=== PATIENT | male | born 1945 | race Hispanic/Latino ===

== ENCOUNTER 2017-08-06 12:58 | Inpatient (IN) | payer MEDICARE ==
[~2017-08-06] VITALS: Ht 180.3 cm; Wt 119.7 kg
[~2017-08-06 12:58] MED LIST: ASPI-1005 PO; ATOR40TA69 PO; CARV3.1262 PO; DOXY100C2 PO; ENAL10TA PO; FLUT1AER IH; FURO20TA6 PO; GLYB5TAB8 PO; METH4TAB15 PO; Prasugrel Hcl PO
[2017-08-06 14:02] LABS: BASOPHILS % (AUTO) 0.8 % (0.0-5.0); EOSINOPHILS % (AUTO) 2.1 % (0.0-8.0); HEMATOCRIT 40.7 % (42-54); LYMPHOCYTES % (AUTO) 26.5 % (21.0-51.0); MEAN CORPUSCULAR HGB CONC 34.2 g/dL (32.0-36.0); MEAN CORPUSCULAR VOLUME 93.8 fL (79-99); MONOCYTES % (AUTO) 7.6 % (3.0-13.0); PLATELET COUNT (AUTO) 200 K/uL (130-400); RED BLOOD CELL COUNT(AUTO) 4.34 MIL/uL (4.50-6.20); RED CELL DISTRIBUTION WIDTH 14.1 % (11.0-15.5)
[2017-08-06 14:19] LABS: INR 0.99 (0.85-1.15); PARTIAL THROMBOPLASTIN TIME 27.1 SEC (26.3-35.5); PROTHROMBIN TIME 10.4 SEC (9.6-11.6)
[2017-08-06 14:22] LABS: CREATININE 1.4 mg/dL (0.5-1.5); POTASSIUM 3.9 mmol/L (3.5-5.1)
[2017-08-06 14:35] LABS: ALBUMIN 3.5 g/dL (3.5-5.0); BILIRUBIN,TOTAL 0.5 mg/dL (0.2-1.0); CREATINE KINASE MB 3.1 ng/mL (0.5-3.6); TOTAL PROTEIN, SERUM 6.9 g/dL (6.0-8.3)
[2017-08-06] MEDS ORDERED: LIDOCAINE HCL-MPF 1% 2ML VIAL IVP PRN (14:45)
[2017-08-06] MEDS ORDERED: POTASSIUM CHLORIDE 20MEQ/100ML 100 ML IV PRN (14:45)
[2017-08-06] MEDS ORDERED: ACETAMINOPHEN 325 MG TAB PO PRN ×2 (14:45)
[2017-08-06] MEDS ORDERED: GUAIFENESIN-DM 200/20 MG 10 ML PO PRN (14:45)
[2017-08-06] MEDS ORDERED: ONDANSETRON HCL MDV 20ML 2 MG/ML VIAL IV PRN (14:45)
[2017-08-06] MEDS ORDERED: MAG HYDROX/AL HYDROX/SIMETH ES 30 ML SUSP UDCUP PO PRN (14:45)
[2017-08-06] MEDS ORDERED: POTASSIUM CHLORIDE 20 MEQ ERTAB PO PRN (14:45)
[2017-08-06] MEDS ORDERED: ACETAMINOPHEN-CODEINE 300/30MG TAB PO PRN ×2 (14:45)
[2017-08-06] MEDS ORDERED: LACTULOSE 20 GM/30 ML UDCUP PO PRN (14:45)
[2017-08-06] MEDS ORDERED: MORPHINE SULFATE 4 MG/1ML SYG IV PRN (14:45)
[2017-08-06] MEDS ORDERED: MORPHINE SULFATE 2 MG/ML 1ML SYG IV PRN (14:45)
[2017-08-06] MEDS ORDERED: POTASSIUM CHLORIDE 10% ELIXIR 20 MEQ/15 ML UDCUP PO PRN (14:45)
[2017-08-06] MEDS ORDERED: HYDRALAZINE HCL 20 MG/ML VIAL IV PRN (14:45)
[2017-08-06] MEDS ORDERED: NITROGLYCERIN 0.4 MG SL TAB SL PRN (14:45)
[2017-08-06 15:00] VITALS: BP 126/74
[2017-08-06] MEDS ORDERED: VALS320T15 PO (15:15)
[2017-08-06] MEDS ORDERED: METF500T6 PO (15:15)
[2017-08-06] MEDS ORDERED: ISOS20TA9 PO (15:15)
[2017-08-06] MEDS ORDERED: CLOP75TA32 PO (15:15)
[2017-08-06] MEDS ORDERED: CEFA500C3 PO (15:15)
[2017-08-06] MEDS ORDERED: LINA1TAB PO (15:15)
[2017-08-06] MEDS ORDERED: FURO20TA4 PO (15:15)
[2017-08-06] MEDS ORDERED: ASPI-555 PO (15:15)
[2017-08-06] MEDS ORDERED: AMOX-429 PO (15:15)
[2017-08-06] MEDS: INSULIN HUMULIN R 100 UNIT/ML 3ML SQ SCH ×2 (15:54→21:00)
[2017-08-06] MEDS: ALBUTEROL SULFATE 0.083% 2.5 MG/3 ML INH IH SCH ×2 (18:33→23:43)
[2017-08-06] MEDS: IPRATROPIUM 0.5 MG/2.5 ML INH IH SCH ×2 (18:33→23:43)
[2017-08-06] MEDS: BUDESONIDE 0.5 MG/2 ML INH IH SCH (19:15)
[2017-08-06 19:40] VITALS: BP 134/75
[2017-08-06] MEDS: CARVEDILOL 3.125 MG TABLET PO SCH (20:32)
[2017-08-06] MEDS: ISOSORBIDE DINITRATE 20 MG TABLET PO SCH (20:33)
[2017-08-06 23:37] VITALS: BP 128/81
[2017-08-07 03:59] LABS: HEMATOCRIT 38.7 % (42-54); MEAN CORPUSCULAR HEMOGLOBIN 32.9 pg (27.0-33.0); MEAN CORPUSCULAR HGB CONC 34.8 g/dL (32.0-36.0); MEAN CORPUSCULAR VOLUME 94.5 fL (79-99); PLATELET COUNT (AUTO) 185 K/uL (130-400); RED CELL DISTRIBUTION WIDTH 14.3 % (11.0-15.5)
[2017-08-07 04:14] VITALS: BP 134/59
[2017-08-07 04:43] LABS: CARBON DIOXIDE 26 mmol/L (21-32); CHLORIDE 100 mmol/L (101-111); CHOLESTEROL 181 mg/dL (<200); CREATINE KINASE MB 1.6 ng/mL (0.5-3.6); CREATINE KINASE, TOTAL 80 U/L (21-232); CREATININE 1.4 mg/dL (0.5-1.5); GLOMERULAR FILTR. RATE CALC 53 mL/min (>60); GLUCOSE,RANDOM 150 mg/dL (70-105); HDL CHOLESTEROL 43 mg/dL (29-71); LDL DIRECT 109 mg/dL (0-99); MYOGLOBIN 61 ng/mL (10-92); POTASSIUM 4.1 mmol/L (3.5-5.1); SODIUM SERUM 135 mmol/L (136-145); TRIGLYCERIDES 243 mg/dL (30-200); TROPONIN I < 0.04 ng/mL (0.00-0.06); UREA NITROGEN, BLOOD 22 mg/dL (7-18)
[2017-08-07] MEDS: INSULIN HUMULIN R 100 UNIT/ML 3ML SQ SCH ×4 (06:13→21:43)
[2017-08-07] MEDS: IPRATROPIUM 0.5 MG/2.5 ML INH IH SCH ×4 (06:20→23:28)
[2017-08-07] MEDS: BUDESONIDE 0.5 MG/2 ML INH IH SCH ×2 (06:20→18:55)
[2017-08-07] MEDS: ALBUTEROL SULFATE 0.083% 2.5 MG/3 ML INH IH SCH ×4 (06:20→23:28)
[2017-08-07 07:00] VITALS: BP 151/90
[2017-08-07] MEDS: ENOXAPARIN SODIUM 40 MG/0.4 ML SYRINGE SQ SCH (09:00)
[2017-08-07] MEDS: CARVEDILOL 3.125 MG TABLET PO SCH ×2 (09:04→21:42)
[2017-08-07] MEDS: LOSARTAN 100 MG TABLET PO SCH (09:04)
[2017-08-07] MEDS: ASPIRIN 81MG TAB.CHEW PO SCH (09:04)
[2017-08-07] MEDS: FAMOTIDINE 20MG TAB 20 MG TAB PO SCH (09:04)
[2017-08-07] MEDS: FUROSEMIDE 20 MG TABLET PO SCH (09:04)
[2017-08-07] MEDS: GLIMEPIRIDE 2 MG TABLET PO SCH (09:05)
[2017-08-07 11:00] VITALS: BP 133/86
[2017-08-07 16:00] VITALS: BP 139/73
[2017-08-07 19:34] VITALS: BP 134/72
[2017-08-07] MEDS: ISOSORBIDE DINITRATE 20 MG TABLET PO SCH (21:41)
[2017-08-08] VITALS (7 sets, daily range): BP systolic 110–140; BP diastolic 64–78
[2017-08-08 05:02] LABS: HEMATOCRIT 41.9 % (42-54); MEAN CORPUSCULAR HEMOGLOBIN 32.4 pg (27.0-33.0); MEAN CORPUSCULAR HGB CONC 34.4 g/dL (32.0-36.0); PLATELET COUNT (AUTO) 205 K/uL (130-400); RED BLOOD CELL COUNT(AUTO) 4.46 MIL/uL (4.50-6.20); RED CELL DISTRIBUTION WIDTH 13.9 % (11.0-15.5); WHITE BLOOD COUNT (AUTO) 7.9 K/uL (4.8-10.8)
[2017-08-08 05:31] LABS: CREATININE 1.5 mg/dL (0.5-1.5)
[2017-08-08] MEDS: IPRATROPIUM 0.5 MG/2.5 ML INH IH SCH ×3 (06:00→18:00)
[2017-08-08] MEDS: ALBUTEROL SULFATE 0.083% 2.5 MG/3 ML INH IH SCH ×3 (06:00→18:00)
[2017-08-08] MEDS: BUDESONIDE 0.5 MG/2 ML INH IH SCH ×2 (06:12→18:00)
[2017-08-08] MEDS: INSULIN HUMULIN R 100 UNIT/ML 3ML SQ SCH ×4 (06:30→21:30)
[2017-08-08] MEDS: LOSARTAN 100 MG TABLET PO SCH (08:40)
[2017-08-08] MEDS: FAMOTIDINE 20MG TAB 20 MG TAB PO SCH (08:40)
[2017-08-08] MEDS: GLIMEPIRIDE 2 MG TABLET PO SCH (08:40)
[2017-08-08] MEDS: ASPIRIN 81MG TAB.CHEW PO SCH (08:40)
[2017-08-08] MEDS: FUROSEMIDE 20 MG TABLET PO SCH (08:40)
[2017-08-08] MEDS: CARVEDILOL 3.125 MG TABLET PO SCH ×2 (08:41→21:29)
[2017-08-08] MEDS: ENOXAPARIN SODIUM 40 MG/0.4 ML SYRINGE SQ SCH (08:45)
[2017-08-08] MEDS: ISOSORBIDE DINITRATE 20 MG TABLET PO SCH (21:28)
[2017-08-08] MEDS: FOLIC ACID 1 MG TABLET PO SCH (21:28)
[2017-08-09 03:45] VITALS: BP 112/74
[2017-08-09 04:38] LABS: CREATININE 1.5 mg/dL (0.5-1.5); POTASSIUM 3.7 mmol/L (3.5-5.1)
[2017-08-09] MEDS: IPRATROPIUM 0.5 MG/2.5 ML INH IH SCH ×2 (06:04)
[2017-08-09] MEDS: ALBUTEROL SULFATE 0.083% 2.5 MG/3 ML INH IH SCH ×2 (06:04)
[2017-08-09] MEDS: BUDESONIDE 0.5 MG/2 ML INH IH SCH (06:15)
[2017-08-09] MEDS: INSULIN HUMULIN R 100 UNIT/ML 3ML SQ SCH ×3 (07:30→18:05)
[2017-08-09] MEDS ORDERED: IPRATROPIUM 0.5 MG/2.5 ML INH IH PRN (07:45)
[2017-08-09] MEDS ORDERED: ALBUTEROL SULFATE 0.083% 2.5 MG/3 ML INH IH PRN (07:45)
[2017-08-09] MEDS ORDERED: BUDESONIDE 0.5 MG/2 ML INH IH PRN (07:45)
[2017-08-09 07:50] VITALS: BP 160/79
[2017-08-09] MEDS: ASPIRIN 81MG TAB.CHEW PO SCH (08:46)
[2017-08-09] MEDS: FAMOTIDINE 20MG TAB 20 MG TAB PO SCH (08:46)
[2017-08-09] MEDS: FUROSEMIDE 20 MG TABLET PO SCH (08:46)
[2017-08-09] MEDS: LOSARTAN 100 MG TABLET PO SCH (08:46)
[2017-08-09] MEDS: FOLIC ACID 1 MG TABLET PO SCH ×2 (08:46→21:40)
[2017-08-09] MEDS: GLIMEPIRIDE 2 MG TABLET PO SCH (08:46)
[2017-08-09] MEDS: CARVEDILOL 3.125 MG TABLET PO SCH ×2 (08:47→21:41)
[2017-08-09] MEDS: ENOXAPARIN SODIUM 40 MG/0.4 ML SYRINGE SQ SCH (08:47)
[2017-08-09 11:35] VITALS: BP 133/73
[2017-08-09] MEDS ORDERED: ALBU8.5H8 IH (15:09)
[2017-08-09] MEDS ORDERED: TIOT18CA3 IH (15:09)
[2017-08-09 16:20] VITALS: BP 110/53
[2017-08-09 19:50] VITALS: BP 115/72
[2017-08-09] MEDS ORDERED: SODIUM CHLORIDE 0.9% 500ML 500 ML IV SCH (20:32)
[2017-08-09] MEDS: ISOSORBIDE DINITRATE 20 MG TABLET PO SCH (21:40)
[2017-08-09 23:15] VITALS: BP 106/62
[2017-08-10] VITALS (12 sets, daily range): BP systolic 113–146; BP diastolic 64–86
[2017-08-10 03:32] LABS: HEMATOCRIT 40.9 % (42-54); MEAN CORPUSCULAR HEMOGLOBIN 32.6 pg (27.0-33.0); MEAN CORPUSCULAR HGB CONC 34.6 g/dL (32.0-36.0); MEAN CORPUSCULAR VOLUME 94.3 fL (79-99); PLATELET COUNT (AUTO) 207 K/uL (130-400); RED BLOOD CELL COUNT(AUTO) 4.34 MIL/uL (4.50-6.20); RED CELL DISTRIBUTION WIDTH 14.1 % (11.0-15.5); WHITE BLOOD COUNT (AUTO) 8.5 K/uL (4.8-10.8)
[2017-08-10 03:37] LABS: CREATININE 1.6 mg/dL (0.5-1.5); POTASSIUM 4.1 mmol/L (3.5-5.1)
[2017-08-10 04:00] LABS: INR 1.01 (0.85-1.15); PARTIAL THROMBOPLASTIN TIME 27.4 SEC (26.3-35.5); PROTHROMBIN TIME 10.6 SEC (9.6-11.6)
[2017-08-10] MEDS: INSULIN HUMULIN R 100 UNIT/ML 3ML SQ SCH ×4 (06:54→21:19)
[2017-08-10] MEDS: FOLIC ACID 1 MG TABLET PO SCH ×2 (08:42→21:28)
[2017-08-10] MEDS: GLIMEPIRIDE 2 MG TABLET PO SCH (08:42)
[2017-08-10] MEDS: ENOXAPARIN SODIUM 40 MG/0.4 ML SYRINGE SQ SCH (08:43)
[2017-08-10] MEDS: ASPIRIN 81MG TAB.CHEW PO SCH (08:43)
[2017-08-10] MEDS: FAMOTIDINE 20MG TAB 20 MG TAB PO SCH (08:43)
[2017-08-10] MEDS: LOSARTAN 100 MG TABLET PO SCH (08:43)
[2017-08-10] MEDS: CARVEDILOL 3.125 MG TABLET PO SCH ×2 (08:44→21:29)
[2017-08-10] MEDS ORDERED: LIDOCAINE HCL-MPF 2% 5ML VIAL ONE ×2 (09:40→12:44)
[2017-08-10] MEDS ORDERED: IOPAMIDOL-370 100 ML VIAL IV ONE (09:40)
[2017-08-10] MEDS ORDERED: ISOVUE-370 50ML VIAL IV ONE (09:40)
[2017-08-10] MEDS ORDERED: BIVALIRUDIN 250 MG/VIAL IV ONE (09:40)
[2017-08-10] MEDS ORDERED: NITROGLYCERIN 5 MG/ML 10 ML VIAL IV ONE (09:40)
[2017-08-10] MEDS ORDERED: FAMOTIDINE/PF 20 MG/2 ML VIAL IV SCH (10:00)
[2017-08-10] MEDS ORDERED: FAMOTIDINE/PF 20 MG/2 ML VIAL IV ONE (10:09)
[2017-08-10] MEDS: DiphenhydrAMINE HCL 50 MG/ML VIAL IV SCH (10:12)
[2017-08-10] MEDS: METHYLPREDNISOLONE SOD SUCC 125MG/2ML VIAL IVP SCH (10:12)
[2017-08-10] MEDS: SODIUM CHLORIDE 0.9% 1000ML 1,000 ML IV SCH (12:45)
[2017-08-10] MEDS ORDERED: SODIUM CHLORIDE 0.9% 1000ML 1,000 ML IV SCH (13:30)
[2017-08-10] MEDS: RANOLAZINE 500 MG TAB.SR.12H PO SCH ×2 (14:41→21:00)
[2017-08-10] MEDS: ACETYLCYSTEINE 20% 200MG/ML 4ML VIAL PO SCH (14:41)
[2017-08-10] MEDS: ISOSORBIDE DINITRATE 20 MG TABLET PO SCH (21:29)
[2017-08-11] MEDS: SODIUM CHLORIDE 0.9% 1000ML 1,000 ML IV SCH (02:05)
[2017-08-11] MEDS: ACETYLCYSTEINE 20% 200MG/ML 4ML VIAL PO SCH ×2 (02:57→12:05)
[2017-08-11 03:46] VITALS: BP 132/68
[2017-08-11 04:59] LABS: HEMATOCRIT 40.2 % (42-54); MEAN CORPUSCULAR HEMOGLOBIN 32.9 pg (27.0-33.0); MEAN CORPUSCULAR HGB CONC 34.6 g/dL (32.0-36.0); MEAN CORPUSCULAR VOLUME 95.1 fL (79-99); PLATELET COUNT (AUTO) 230 K/uL (130-400); RED BLOOD CELL COUNT(AUTO) 4.22 MIL/uL (4.50-6.20)
[2017-08-11 05:20] LABS: CREATININE 1.7 mg/dL (0.5-1.5); MAGNESIUM 1.9 mg/dL (1.80-2.40); POTASSIUM 4.3 mmol/L (3.5-5.1)
[2017-08-11] MEDS: INSULIN HUMULIN R 100 UNIT/ML 3ML SQ SCH ×2 (06:30→12:01)
[2017-08-11 07:00] VITALS: BP 147/82
[2017-08-11] MEDS ORDERED: RANO500T2 PO (07:05)
[2017-08-11] MEDS: ASPIRIN 81MG TAB.CHEW PO SCH (09:00)
[2017-08-11] MEDS: RANOLAZINE 500 MG TAB.SR.12H PO SCH (09:00)
[2017-08-11] MEDS: FAMOTIDINE 20MG TAB 20 MG TAB PO SCH (09:00)
[2017-08-11] MEDS: LOSARTAN 100 MG TABLET PO SCH (09:00)
[2017-08-11] MEDS: FOLIC ACID 1 MG TABLET PO SCH (09:00)
[2017-08-11] MEDS: ENOXAPARIN SODIUM 40 MG/0.4 ML SYRINGE SQ SCH (09:00)
[2017-08-11] MEDS: METHYLPREDNISOLONE SOD SUCC 125MG/2ML VIAL IVP SCH (09:01)
[2017-08-11] MEDS: CARVEDILOL 3.125 MG TABLET PO SCH (09:01)
[2017-08-11] MEDS: DiphenhydrAMINE HCL 50 MG/ML VIAL IV SCH (09:01)
[2017-08-11 11:00] VITALS: BP 144/83
== END 2017-08-11 15:25 | disposition home or self-care (01) | DRG 281 ==
LOC: EDH 12:58 → EDHIP 12:59 → 2DH 14:38
PROVIDERS: ADMIT Internal Medicine; ATTEND Internal Medicine
PROC: 4A023N7 Measurement of Cardiac Sampling and Pressure, Left Heart, Percutaneous Approach (ICD-10-PCS; principal; 2017-08-10)
PROC: B2151ZZ Fluoroscopy of Left Heart using Low Osmolar Contrast (ICD-10-PCS; 2017-08-10)
PROC: B2111ZZ Fluoroscopy of Multiple Coronary Arteries using Low Osmolar Contrast (ICD-10-PCS; 2017-08-10)
PROC: B2151ZZ Fluoroscopy of Left Heart using Low Osmolar Contrast (ICD-10-PCS; 2017-08-10)
DX: T82.858A Stenosis of other vascular prosthetic devices, implants and grafts, initial encounter (principal); I21.4 Non-ST elevation (NSTEMI) myocardial infarction; N17.9 Acute kidney failure, unspecified; I25.110 Atherosclerotic heart disease of native coronary artery with unstable angina pectoris; G91.2 (Idiopathic) normal pressure hydrocephalus; I50.40 Unspecified combined systolic (congestive) and diastolic (congestive) heart failure; J44.1 Chronic obstructive pulmonary disease with (acute) exacerbation; E11.42 Type 2 diabetes mellitus with diabetic polyneuropathy; E66.01 Morbid (severe) obesity due to excess calories; E78.5 Hyperlipidemia, unspecified; F17.200 Nicotine dependence, unspecified, uncomplicated; G47.33 Obstructive sleep apnea (adult) (pediatric); I11.0 Hypertensive heart disease with heart failure; I48.2 Chronic atrial fibrillation; R32 Unspecified urinary incontinence; R27.0 Ataxia, unspecified; Y83.8 Other surgical procedures as the cause of abnormal reaction of the patient, or of later complication, without mention of misadventure at the time of the procedure; I25.2 Old myocardial infarction; Z79.01 Long term (current) use of anticoagulants; Z79.02 Long term (current) use of antithrombotics/antiplatelets; Z79.82 Long term (current) use of aspirin; Z98.84 Bariatric surgery status; Z95.5 Presence of coronary angioplasty implant and graft; Z95.1 Presence of aortocoronary bypass graft; Z91.19 Patient's noncompliance with other medical treatment and regimen; Z91.14 Patient's other noncompliance with medication regimen; Z90.81 Acquired absence of spleen; Z68.36 Body mass index [BMI] 36.0-36.9, adult; Z88.8 Allergy status to other drugs, medicaments and biological substances; Z91.041 Radiographic dye allergy status; Y92.89 Other specified places as the place of occurrence of the external cause; Z82.49 Family history of ischemic heart disease and other diseases of the circulatory system; Z82.3 Family history of stroke
CPT/HCPCS: 36415; 70551; 71046; 80048; 80053; 80061; 82550; 82553; 82947; 82948; 83735; 83874; 84484; 85025; 85027; 85610; 85730; 93005; 93459; 94640; 94664; C1760; C1769; C1894; J0583; J1200; J1644; J1650; J1815; J2930; J3490; J7608; Q9967

== ENCOUNTER 2019-02-19 15:02 | Inpatient (IN) | payer MEDICARE ==
[~2019-02-19 15:02] MED LIST changes: +ALBU8.5H8 IH; -ASPI-1005 PO; +ASPI-555 PO; +CARV12.511 PO; -CARV3.1262 PO; +CLOP75TA14 PO; -DOXY100C2 PO; +DULA1.5P SQ; -ENAL10TA PO; -FLUT1AER IH; +FURO20TA4 PO; -FURO20TA6 PO; +GLIM2TAB4 PO; -GLYB5TAB8 PO; +METF-444 PO; -METH4TAB15 PO; +PANT40TA25 PO; -Prasugrel Hcl PO; +RIVA20TA PO; +TIOT18CA3 IH; +VALS320T16 PO
[2019-02-19 15:31] LABS: BASOPHILS % (AUTO) 1.2 % (0.0-5.0); EOSINOPHILS % (AUTO) 1.5 % (0.0-8.0); HEMATOCRIT 46.1 % (42-54); MEAN CORPUSCULAR HEMOGLOBIN 33.4 pg (27.0-33.0); MEAN CORPUSCULAR HGB CONC 34.8 g/dL (32.0-36.0); MEAN CORPUSCULAR VOLUME 95.8 fL (79-99); MONOCYTES % (AUTO) 8.8 % (3.0-13.0); NEUTROPHILS % (AUTO) 66.5 % (40.0-77.0); PLATELET COUNT (AUTO) 209 K/uL (130-400); RED BLOOD CELL COUNT(AUTO) 4.81 MIL/uL (4.50-6.20); RED CELL DISTRIBUTION WIDTH 13.9 % (11.0-15.5); WHITE BLOOD COUNT (AUTO) 8.2 K/uL (4.8-10.8)
[2019-02-19 15:44] LABS: CREATININE 1.6 mg/dL (0.5-1.5); POTASSIUM 3.9 mmol/L (3.5-5.1)
[2019-02-19 15:50] LABS: ALBUMIN 3.7 g/dL (3.5-5.0); BILIRUBIN,TOTAL 0.4 mg/dL (0.2-1.0)
[2019-02-19 16:04] LABS: B-TYPE NATRIURETIC PEPTIDE 209 pg/mL (0-100)
[2019-02-19] MEDS ORDERED: METHYLPREDNISOLONE SOD SUCC 125MG/2ML VIAL ONE (16:18)
[2019-02-19] MEDS ORDERED: IPRATROPIUM/ALBUTEROL SULFATE 3 ML SOLUTION IH ONE (16:21)
[2019-02-19] MEDS ORDERED: NITROGLYCERIN 1GM/1 INCH PACKET TD ONE (16:23)
[2019-02-19] MEDS ORDERED: ASPIRIN 325MG EC TAB 325 MG TABLET.DR PO ONE (16:24)
[2019-02-19] MEDS ORDERED: MORPHINE SULFATE 2 MG/ML 1ML SYG ONE (16:25)
[2019-02-19] MEDS ORDERED: ONDANSETRON HCL 4 MG/2 ML VIAL ONE (16:25)
[2019-02-19 16:36] LABS: ABG BASE EXCESS -2.5 mmol/L (-2.0-3.0); ABG HCO3 20.9 mmol/L (21.0-28.0); ABG OXYGEN SATURATION 97.6 % (95.0-99.0); ABG PCO2 33 mmHg (35-48)
[2019-02-19 18:47] LABS: TROPONIN I 0.22 ng/mL (0.00-0.06)
[2019-02-19] MEDS ORDERED: SODIUM CHLORIDE 0.9% 1000ML 1,000 ML IV SCH (19:10)
[2019-02-19] MEDS ORDERED: ACETAMINOPHEN 325 MG TAB PO PRN ×2 (19:15)
[2019-02-19] MEDS ORDERED: MORPHINE SULFATE 4 MG/1ML SYG IV PRN (19:15)
[2019-02-19] MEDS ORDERED: ONDANSETRON HCL 4 MG/2 ML VIAL IV PRN (19:15)
[2019-02-19] MEDS ORDERED: ZOLPIDEM TARTRATE 5 MG TAB PO PRN (19:15)
[2019-02-19] MEDS ORDERED: MORPHINE SULFATE 2 MG/ML 1ML SYG IV PRN (19:15)
[2019-02-19] MEDS ORDERED: HYDRALAZINE HCL 20 MG/ML VIAL IV PRN (19:15)
[2019-02-19] MEDS ORDERED: NITROGLYCERIN 0.4 MG SL TAB SL PRN (19:30)
[2019-02-19] MEDS ORDERED: HEPARIN SODIUM 5000UNIT/ML 1ML VIAL SQ SCH (21:00)
[2019-02-19] MEDS ORDERED: FAMOTIDINE/PF 20 MG/2 ML VIAL IV SCH (21:00)
[2019-02-19] MEDS ORDERED: METOPROLOL TARTRATE 25 MG TAB PO SCH (21:00)
[2019-02-20] MEDS ORDERED: ATORVASTATIN CALCIUM 40 MG TABLET PO SCH (09:00)
== END 2019-02-19 20:11 | disposition left against medical advice (07) | DRG 282 ==
LOC: EDH 15:02 → EDHIP 19:10
PROVIDERS: ADMIT Internal Medicine; ATTEND Internal Medicine
DX: I21.4 Non-ST elevation (NSTEMI) myocardial infarction (principal); E11.9 Type 2 diabetes mellitus without complications; E78.5 Hyperlipidemia, unspecified; G47.30 Sleep apnea, unspecified; I10 Essential (primary) hypertension; I25.5 Ischemic cardiomyopathy; J44.9 Chronic obstructive pulmonary disease, unspecified; Z82.0 Family history of epilepsy and other diseases of the nervous system; I48.91 Unspecified atrial fibrillation; E55.9 Vitamin D deficiency, unspecified; E66.9 Obesity, unspecified; I48.0 Paroxysmal atrial fibrillation; Z82.49 Family history of ischemic heart disease and other diseases of the circulatory system; Z82.5 Family history of asthma and other chronic lower respiratory diseases; Z83.3 Family history of diabetes mellitus; Z95.1 Presence of aortocoronary bypass graft; Z53.21 Procedure and treatment not carried out due to patient leaving prior to being seen by health care provider; Z90.49 Acquired absence of other specified parts of digestive tract; Z88.8 Allergy status to other drugs, medicaments and biological substances; Z88.1 Allergy status to other antibiotic agents; Z91.041 Radiographic dye allergy status
CPT/HCPCS: 36415; 36600; 71045; 80053; 82550; 82803; 82948; 83874; 83880; 84484; 85025; 85378; 93005; 94640; G0378; J2405; J2930

== ENCOUNTER → 2019-02-27 | Outpatient (CLI) | payer MEDICARE ==
[~2019-02-27] VITALS: Ht 180.3 cm; Wt 115.2 kg
[~2019-02-27] MED LIST changes: +REGADENOSON 0.4 MG/5 ML PF SYG IVP SCH
== END | disposition home or self-care (01) ==
LOC: SHCH 09:10
PROVIDERS: ATTEND Internal Medicine Cardiovascular Disease
DX: I25.10 Atherosclerotic heart disease of native coronary artery without angina pectoris (principal); R07.9 Chest pain, unspecified
CPT/HCPCS: 78452; 93017; A9500 ×2; J2785; 96374

== ENCOUNTER → 2019-06-25 | Outpatient (CLI) | payer MEDICARE ==
[~2019-06-25] MED LIST changes: +GLIM2TAB30 PO; -GLIM2TAB4 PO; -REGADENOSON 0.4 MG/5 ML PF SYG IVP SCH
== END | disposition home or self-care (01) ==
LOC: OIH 15:04
PROVIDERS: ATTEND Internal Medicine Cardiovascular Disease
DX: I51.7 Cardiomegaly (principal); I48.0 Paroxysmal atrial fibrillation; M47.814 Spondylosis without myelopathy or radiculopathy, thoracic region
CPT/HCPCS: 71046

== ENCOUNTER → 2019-08-15 | Outpatient (CLI) | payer MEDICARE | END | disposition home or self-care (01) | LOC: OIH 13:06 | PROVIDERS: ATTEND Internal Medicine Cardiovascular Disease | DX: R06.00 Dyspnea, unspecified (principal); M47.815 Spondylosis without myelopathy or radiculopathy, thoracolumbar region; I51.7 Cardiomegaly | CPT/HCPCS: 71046 ==

== ENCOUNTER 2020-01-14 13:42 | Inpatient (IN) | payer MEDICARE ==
[~2020-01-14] VITALS: Ht 170.2 cm; Wt 113.0 kg
[~2020-01-14 13:42] MED LIST changes: -ASPI-555 PO; +ASPI-556 PO; -PANT40TA25 PO; +PANT40TA54 PO
[2020-01-14] MEDS ORDERED: NITROGLYCERIN 50 MG/D5% WATER 1 BOT ONE (14:16)
[2020-01-14 14:20] LABS: BASOPHILS % (AUTO) 0.9 % (0.0-5.0); EOSINOPHILS % (AUTO) 1.1 % (0.0-8.0); HEMATOCRIT 45.9 % (42-54); LYMPHOCYTES % (AUTO) 25.9 % (21.0-51.0); MEAN CORPUSCULAR HEMOGLOBIN 31.9 pg (27.0-33.0); MEAN CORPUSCULAR HGB CONC 34.4 g/dL (32.0-36.0); MEAN CORPUSCULAR VOLUME 92.5 fL (79-99); MONOCYTES % (AUTO) 9.2 % (3.0-13.0); NEUTROPHILS % (AUTO) 62.7 % (40.0-77.0); PLATELET COUNT (AUTO) 184 K/uL (130-400); RED BLOOD CELL COUNT(AUTO) 4.96 MIL/uL (4.50-6.20); RED CELL DISTRIBUTION WIDTH 12.3 % (11.0-15.5); WHITE BLOOD COUNT (AUTO) 5.6 K/uL (4.8-10.8)
[2020-01-14 14:31] LABS: CREATININE 1.4 mg/dL (0.5-1.5)
[2020-01-14 14:32] LABS: HEMOGLOBIN A1C 9.2 % (4.0-6.0)
[2020-01-14 14:36] LABS: ALBUMIN 3.8 g/dL (3.5-5.0); BILIRUBIN,TOTAL 0.6 mg/dL (0.2-1.0); TOTAL PROTEIN, SERUM 7.6 g/dL (6.0-8.3)
[2020-01-14 14:54] LABS: B-TYPE NATRIURETIC PEPTIDE 152 pg/mL (0-100)
[2020-01-14] MEDS: HYDROCHLOROTHIAZIDE 25 MG TABLET PO SCH (15:26)
[2020-01-14] MEDS: ASPIRIN 81 MG EC TAB PO SCH (15:27)
[2020-01-14] MEDS ORDERED: NITROGLYCERIN 50 MG/D5% WATER 250 BOT IV SCH (15:28)
[2020-01-14] MEDS ORDERED: DEXTROSE 50%-WATER 50 ML DISP.SYRIN IV PRN (15:30)
[2020-01-14] MEDS ORDERED: LIDOCAINE HCL-MPF 1% 2ML VIAL IJ PRN (15:30)
[2020-01-14] MEDS ORDERED: POTASSIUM CHLORIDE 10% ELIXIR 20 MEQ/15 ML UDCUP PO PRN (15:30)
[2020-01-14] MEDS ORDERED: POTASSIUM CHLORIDE 20MEQ/100ML 100 ML IV PRN (15:30)
[2020-01-14] MEDS ORDERED: GLUCAGON 1MG KIT 1 MG ML IM PRN (15:30)
[2020-01-14 16:05] LABS: APPEARANCE,URINE CLOUDY (CLEAR); BILIRUBIN,URINE NEGATIVE (NEGATIVE); COLOR,URINE YELLOW (YELLOW); GLUCOSE, URINE (UA) >=1000 mg/dL (NEGATIVE); KETONES,URINE 15 mg/dL (NEGATIVE); LEUKOCYTE ESTERASE ,URINE MODERATE (NEGATIVE); NITRATE,URINE POSITIVE (NEGATIVE); OCCULT BLOOD,URINE MODERATE (NEGATIVE); PROTEIN,URINE 100 mg/dL (NEGATIVE); UROBILINOGEN,URINE 0.2 mg/dL (0.2-1.0)
[2020-01-14 16:15] LABS: BACTERIA,URINE Moderate /HPF (None Seen); SQUAMOUS EPITHELIAL CELL,UR Rare /HPF (0-2); WBC,URINE >100 /HPF (0-1)
[2020-01-14] MEDS: INSULIN R PO SSI SQ SCH ×2 (16:30→21:00)
[2020-01-14] MEDS ORDERED: ONDANSETRON HCL 4 MG/2 ML VIAL IV PRN (17:30)
[2020-01-14] MEDS ORDERED: MORPHINE SULFATE 4 MG/1ML SYG IV PRN (17:30)
[2020-01-14] MEDS ORDERED: SODIUM CHLORIDE 0.9% 1000ML 1,000 ML IV SCH (17:30)
[2020-01-14] MEDS ORDERED: DiphenhydrAMINE HCL 50 MG/ML VIAL IV PRN (17:30)
[2020-01-14] MEDS ORDERED: GUAIFENESIN-DM 200/20 MG 10 ML PO PRN (17:30)
[2020-01-14] MEDS ORDERED: DIPHENHYDRAMINE HCL 25 MG CAPSULE PO PRN (17:30)
[2020-01-14] MEDS ORDERED: LACTULOSE 20 GM/30 ML UDCUP PO PRN (17:30)
[2020-01-14] MEDS ORDERED: ACETAMINOPHEN 325 MG TAB PO PRN ×2 (17:30)
[2020-01-14] MEDS ORDERED: NITROGLYCERIN 0.4 MG SL TAB SL PRN (17:30)
[2020-01-14] MEDS ORDERED: MAG HYDROX/AL HYDROX/SIMETH ES 30 ML SUSP UDCUP PO PRN (17:30)
[2020-01-14] MEDS ORDERED: MORPHINE SULFATE 2 MG/ML 1ML SYG IV PRN (17:30)
[2020-01-14] MEDS ORDERED: MAG HYDROX/AL HYDROX/SIMETH 30 ML, LIDOCAINE HCL 2% VISCOUS 30 ML, DIPHENHYDRAMINE HCL ... PO PRN ×3 (17:30)
[2020-01-14] MEDS ORDERED: HYDRALAZINE HCL 20 MG/ML VIAL IV PRN (17:30)
[2020-01-14] MEDS ORDERED: LIDOCAINE HCL 2% VISCOUS 30 ML, MAG HYDROX/AL HYDROX/SIMETH 30 ML, BELLADONNA-PHENOBARB... PO PRN ×3 (17:30)
[2020-01-14] MEDS ORDERED: ACETAMINOPHEN 325 MG TAB ONE (17:49)
[2020-01-14] MEDS ORDERED: CEFTRIAXONE SODIUM 2 GM VIAL ONE (17:49)
[2020-01-14] MEDS: CEFTRIAXONE SODIUM 1 GM IVP SCH (18:15)
[2020-01-14 19:12] LABS: CREATINE KINASE, TOTAL 45 U/L (21-232); MYOGLOBIN 45 ng/mL (10-92); TROPONIN I < 0.04 ng/mL (0.00-0.06)
[2020-01-14] MEDS ORDERED: HEPARIN SODIUM 5000UNIT/ML 1ML VIAL SQ SCH (21:00)
[2020-01-14] MEDS ORDERED: HEPARIN SODIUM 5000UNIT/ML 1ML VIAL ONE (21:10)
[2020-01-15 04:31] LABS: BASOPHILS % (AUTO) 0.7 % (0.0-5.0); EOSINOPHILS % (AUTO) 1.4 % (0.0-8.0); HEMATOCRIT 43.9 % (42-54); LYMPHOCYTES % (AUTO) 22.9 % (21.0-51.0); MEAN CORPUSCULAR HEMOGLOBIN 31.9 pg (27.0-33.0); MEAN CORPUSCULAR HGB CONC 34.4 g/dL (32.0-36.0); MEAN CORPUSCULAR VOLUME 92.8 fL (79-99); MONOCYTES % (AUTO) 8.7 % (3.0-13.0); NEUTROPHILS % (AUTO) 66.1 % (40.0-77.0); PLATELET COUNT (AUTO) 179 K/uL (130-400); RED BLOOD CELL COUNT(AUTO) 4.73 MIL/uL (4.50-6.20); RED CELL DISTRIBUTION WIDTH 12.7 % (11.0-15.5); WHITE BLOOD COUNT (AUTO) 5.8 K/uL (4.8-10.8)
[2020-01-15 04:48] LABS: ALBUMIN 3.5 g/dL (3.5-5.0); BILIRUBIN,TOTAL 0.6 mg/dL (0.2-1.0); CREATININE 1.4 mg/dL (0.5-1.5); POTASSIUM 4.1 mmol/L (3.5-5.1); TOTAL PROTEIN, SERUM 7.2 g/dL (6.0-8.3)
[2020-01-15 05:17] LABS: CREATINE KINASE, TOTAL 80 U/L (21-232); MYOGLOBIN 61 ng/mL (10-92); TROPONIN I < 0.04 ng/mL (0.00-0.06)
[2020-01-15] MEDS ORDERED: HYDRALAZINE HCL 20 MG/ML VIAL ONE (06:15)
[2020-01-15] MEDS: INSULIN R PO SSI SQ SCH ×4 (07:30→21:00)
[2020-01-15] MEDS ORDERED: INSULIN HUMULIN R 100 UNIT/ML 3ML ONE ×3 (08:19→21:00)
[2020-01-15] MEDS ORDERED: ACETAMINOPHEN 325 MG TAB ONE (08:28)
[2020-01-15] MEDS ORDERED: ASPIRIN 81MG TAB.CHEW ONE (08:52)
[2020-01-15] MEDS ORDERED: HYDROCHLOROTHIAZIDE 25 MG TABLET ONE (08:52)
[2020-01-15] MEDS: EMPAGLIFLOZIN 25 MG PO SCH (09:00)
[2020-01-15] MEDS: HYDROCHLOROTHIAZIDE 25 MG TABLET PO SCH (09:00)
[2020-01-15] MEDS: ASPIRIN 81 MG EC TAB PO SCH (09:00)
[2020-01-15 10:31] LABS: CREATINE KINASE, TOTAL 49 U/L (21-232); MYOGLOBIN 51 ng/mL (10-92); TROPONIN I < 0.04 ng/mL (0.00-0.06)
[2020-01-15] MEDS ORDERED: ENOXAPARIN SODIUM 40 MG/0.4 ML SYRINGE SQ ONE (12:21)
[2020-01-15] MEDS ORDERED: NITROGLYCERIN 50 MG/D5% WATER 1 BOT ONE ×2 (12:25→14:36)
[2020-01-15] MEDS ORDERED: SODIUM CHLORIDE 0.9% 1000ML 1,000 ML IV ONE (12:25)
[2020-01-15] MEDS ORDERED: ISOSORBIDE MONO 60 MG TAB.SR PO SCH (13:00)
--- NOTE | 2020-01-15 15:38 | NUR ---
MICHELLE NOTE/IA UNABLE TO MEET WITH PATIENT, NEXT OF KIN CALLED, TRUONG PABON. PER GRANDDAUGHTER, PATIENT LIVES WITH SPOUSE AND SON, IS INDEPENDENT WITH ADLS, NO USE OF DME OR HOME HEALTH, MAY CALL PERRI CONTRERAS [phone] DAUGHTER FOR RIDE HOME, AND FEELS SAFE FOR PATIENT TO RETURN HOME ONCE DISCHARGED. Addendum: 01/16/20 at 0930 by MARYELLEN STEELE RN CM Amended: Links added.
[2020-01-15] MEDS: CEFTRIAXONE SODIUM 1 GM IVP SCH (18:15)
[2020-01-15] MEDS ORDERED: MORPHINE SULFATE 2 MG/ML 1ML SYG ONE (19:05)
[2020-01-15] MEDS ORDERED: ZOLPIDEM TARTRATE 5 MG TAB ONE (19:05)
[2020-01-15] MEDS ORDERED: CEFTRIAXONE SODIUM 2 GM VIAL ONE (21:00)
[2020-01-16 04:30] LABS: BASOPHILS % (AUTO) 0.6 % (0.0-5.0); EOSINOPHILS % (AUTO) 1.9 % (0.0-8.0); HEMATOCRIT 42.2 % (42-54); LYMPHOCYTES % (AUTO) 18.5 % (21.0-51.0); MEAN CORPUSCULAR HEMOGLOBIN 32.5 pg (27.0-33.0); MEAN CORPUSCULAR HGB CONC 34.8 g/dL (32.0-36.0); MEAN CORPUSCULAR VOLUME 93.2 fL (79-99); MONOCYTES % (AUTO) 11.2 % (3.0-13.0); NEUTROPHILS % (AUTO) 67.5 % (40.0-77.0); PLATELET COUNT (AUTO) 174 K/uL (130-400); RED BLOOD CELL COUNT(AUTO) 4.53 MIL/uL (4.50-6.20); RED CELL DISTRIBUTION WIDTH 12.3 % (11.0-15.5); WHITE BLOOD COUNT (AUTO) 6.9 K/uL (4.8-10.8)
[2020-01-16 04:43] LABS: ALBUMIN 3.2 g/dL (3.5-5.0); BILIRUBIN,TOTAL 0.6 mg/dL (0.2-1.0); CREATININE 1.2 mg/dL (0.5-1.5); POTASSIUM 3.2 mmol/L (3.5-5.1); TOTAL PROTEIN, SERUM 6.6 g/dL (6.0-8.3)
[2020-01-16] MEDS ORDERED: LORAZEPAM 2 MG/ML 1 ML VIAL ONE ×2 (05:03→12:02)
[2020-01-16] MEDS ORDERED: POTASSIUM CHLORIDE 20MEQ/100ML 100 ML IV ONE ×2 (05:35→07:40)
[2020-01-16] MEDS ORDERED: LORAZEPAM 2 MG/ML 1 ML VIAL IVP PRN (06:00)
[2020-01-16] MEDS: INSULIN R PO SSI SQ SCH ×4 (07:30→21:10)
[2020-01-16] MEDS ORDERED: ASPIRIN 81MG TAB.CHEW ONE (07:57)
[2020-01-16] MEDS ORDERED: ENOXAPARIN SODIUM 40 MG/0.4 ML SYRINGE SQ ONE (07:58)
[2020-01-16] MEDS ORDERED: HYDROCHLOROTHIAZIDE 25 MG TABLET ONE (07:58)
[2020-01-16] MEDS ORDERED: INSULIN HUMULIN R 100 UNIT/ML 3ML ONE ×2 (07:59→16:41)
[2020-01-16] MEDS: HYDROCHLOROTHIAZIDE 25 MG TABLET PO SCH (09:00)
[2020-01-16] MEDS: ASPIRIN 81 MG EC TAB PO SCH (09:00)
[2020-01-16] MEDS: ISOSORBIDE MONO 60 MG TAB.SR PO SCH (09:00)
[2020-01-16] MEDS: EMPAGLIFLOZIN 25 MG PO SCH (09:00)
[2020-01-16] MEDS: ENOXAPARIN SODIUM 40 MG/0.4 ML SYRINGE SQ SCH (09:00)
[2020-01-16] MEDS: ENTRESTO PO SCH ×2 (09:42→21:13)
[2020-01-16 17:38] VITALS: BP 117/76
[2020-01-16 19:59] VITALS: BP 124/63
[2020-01-16] MEDS: CEFTRIAXONE SODIUM 1 GM IVP SCH (20:16)
[2020-01-16 23:41] VITALS: BP 111/68
[2020-01-17 03:20] VITALS: BP 156/58
[2020-01-17] MEDS ORDERED: SACU1TAB7 PO ×2 (03:20→03:21)
[2020-01-17] MEDS: INSULIN R PO SSI SQ SCH ×4 (06:02→21:42)
[2020-01-17 06:11] LABS: BASOPHILS % (AUTO) 0.7 % (0.0-5.0); EOSINOPHILS % (AUTO) 1.3 % (0.0-8.0); HEMATOCRIT 44.8 % (42-54); LYMPHOCYTES % (AUTO) 16.7 % (21.0-51.0); MEAN CORPUSCULAR HEMOGLOBIN 32.7 pg (27.0-33.0); MEAN CORPUSCULAR VOLUME 93.3 fL (79-99); MONOCYTES % (AUTO) 9.9 % (3.0-13.0); PLATELET COUNT (AUTO) 182 K/uL (130-400); RED CELL DISTRIBUTION WIDTH 12.4 % (11.0-15.5); WHITE BLOOD COUNT (AUTO) 8.3 K/uL (4.8-10.8)
[2020-01-17 06:39] LABS: ALBUMIN 3.2 g/dL (3.5-5.0); BILIRUBIN,TOTAL 0.9 mg/dL (0.2-1.0); CREATININE 1.3 mg/dL (0.5-1.5); POTASSIUM 3.4 mmol/L (3.5-5.1); TOTAL PROTEIN, SERUM 6.9 g/dL (6.0-8.3)
[2020-01-17 08:00] VITALS: BP 127/88
[2020-01-17] MEDS: EMPAGLIFLOZIN 25 MG PO SCH (09:00)
[2020-01-17] MEDS: MEROPENEM 1 GM VIAL IVP SCH ×2 (09:38→20:53)
[2020-01-17] MEDS: HYDROCHLOROTHIAZIDE 25 MG TABLET PO SCH (09:38)
[2020-01-17] MEDS: ASPIRIN 81 MG EC TAB PO SCH (09:38)
[2020-01-17] MEDS: ENOXAPARIN SODIUM 40 MG/0.4 ML SYRINGE SQ SCH (09:38)
[2020-01-17] MEDS: ISOSORBIDE MONO 60 MG TAB.SR PO SCH (09:38)
[2020-01-17] MEDS: ENTRESTO PO SCH ×2 (09:44→21:00)
[2020-01-17 11:00] VITALS: BP 101/72
[2020-01-17 16:00] VITALS: BP 98/63
[2020-01-17 19:00] VITALS: BP 106/62
[2020-01-17 20:00] VITALS: BP 95/62
[2020-01-18 04:00] VITALS: BP 114/62
[2020-01-18 04:34] LABS: BASOPHILS % (AUTO) 0.6 % (0.0-5.0); EOSINOPHILS % (AUTO) 1.5 % (0.0-8.0); HEMATOCRIT 47.2 % (42-54); MEAN CORPUSCULAR HGB CONC 34.3 g/dL (32.0-36.0); MEAN CORPUSCULAR VOLUME 93.3 fL (79-99); MONOCYTES % (AUTO) 9.9 % (3.0-13.0); NEUTROPHILS % (AUTO) 65.6 % (40.0-77.0); PLATELET COUNT (AUTO) 221 K/uL (130-400); RED BLOOD CELL COUNT(AUTO) 5.06 MIL/uL (4.50-6.20); RED CELL DISTRIBUTION WIDTH 12.6 % (11.0-15.5)
[2020-01-18 04:53] LABS: CREATININE 2.3 mg/dL (0.5-1.5); POTASSIUM 3.7 mmol/L (3.5-5.1)
[2020-01-18] MEDS: INSULIN R PO SSI SQ SCH ×4 (06:28→22:06)
[2020-01-18] MEDS: SODIUM CHLORIDE 0.9% 1000ML 1,000 ML IV SCH (07:07)
[2020-01-18 08:00] VITALS: BP 92/59
[2020-01-18] MEDS: ENTRESTO PO SCH ×2 (09:00→21:00)
[2020-01-18] MEDS: HYDROCHLOROTHIAZIDE 25 MG TABLET PO SCH (09:00)
[2020-01-18] MEDS: EMPAGLIFLOZIN 25 MG PO SCH (09:00)
[2020-01-18] MEDS: ASPIRIN 81 MG EC TAB PO SCH (10:11)
[2020-01-18] MEDS: MEROPENEM 1 GM VIAL IVP SCH ×2 (10:11→20:19)
[2020-01-18] MEDS: ENOXAPARIN SODIUM 40 MG/0.4 ML SYRINGE SQ SCH (10:12)
[2020-01-18] MEDS: ISOSORBIDE MONO 60 MG TAB.SR PO SCH (10:12)
[2020-01-18 12:00] VITALS: BP 100/64
[2020-01-18 16:00] VITALS: BP 92/57
[2020-01-18 20:02] VITALS: BP 99/62
[2020-01-18 23:39] VITALS: BP 144/75
[2020-01-19] MEDS: SODIUM CHLORIDE 0.9% 1000ML 1,000 ML IV SCH (02:45)
--- NOTE | 2020-01-19 02:57 | NUR ---
ABNORMAL RHYTHM PT SOUND ASLEEP ,TECH REPORTED SECOND DEGREE AV BLOCK < 20 SECONDS ,HR [id number], REVERTED ON ITS OWN TO 60'S-70'S Addendum: 01/19/20 at 0607 by LOUIE MATIAS RN RN Amended: Links added.
[2020-01-19 03:00] VITALS: BP 129/67
[2020-01-19 04:04] LABS: BASOPHILS % (AUTO) 0.8 % (0.0-5.0); HEMATOCRIT 39.5 % (42-54); LYMPHOCYTES % (AUTO) 22.4 % (21.0-51.0); MEAN CORPUSCULAR HEMOGLOBIN 32.8 pg (27.0-33.0); MEAN CORPUSCULAR HGB CONC 35.2 g/dL (32.0-36.0); MEAN CORPUSCULAR VOLUME 93.2 fL (79-99); MONOCYTES % (AUTO) 9.3 % (3.0-13.0); NEUTROPHILS % (AUTO) 65.1 % (40.0-77.0); PLATELET COUNT (AUTO) 203 K/uL (130-400); RED BLOOD CELL COUNT(AUTO) 4.24 MIL/uL (4.50-6.20); RED CELL DISTRIBUTION WIDTH 12.7 % (11.0-15.5); WHITE BLOOD COUNT (AUTO) 7.4 K/uL (4.8-10.8)
[2020-01-19 04:24] LABS: CREATININE 1.8 mg/dL (0.5-1.5); POTASSIUM 3.1 mmol/L (3.5-5.1)
[2020-01-19] MEDS: POTASSIUM CHLORIDE 20 MEQ ERTAB PO PRN ×3 (05:12→18:00)
[2020-01-19] MEDS: INSULIN R PO SSI SQ SCH ×4 (06:26→20:42)
[2020-01-19 08:00] VITALS: BP 121/52
--- NOTE | 2020-01-19 08:30 | NUR ---
PROTRUDING AT THE UMBILICUS Addendum: 01/19/20 at 1737 by ANGUS NEELY RN RN Amended: Links added.
[2020-01-19] MEDS: EMPAGLIFLOZIN 25 MG PO SCH (09:00)
[2020-01-19] MEDS: MEROPENEM 1 GM VIAL IVP SCH ×2 (09:19→20:41)
[2020-01-19] MEDS: HYDROCHLOROTHIAZIDE 25 MG TABLET PO SCH (09:19)
[2020-01-19] MEDS: ASPIRIN 81 MG EC TAB PO SCH (09:19)
[2020-01-19] MEDS: ISOSORBIDE MONO 60 MG TAB.SR PO SCH (09:20)
[2020-01-19] MEDS: ENTRESTO PO SCH ×2 (09:22→21:00)
[2020-01-19] MEDS: ENOXAPARIN SODIUM 40 MG/0.4 ML SYRINGE SQ SCH (09:23)
[2020-01-19 16:00] VITALS: BP 101/69
--- NOTE | 2020-01-19 18:30 | NUR ---
DR RAFI MCKEE ROUNDED ON PATIENT REVIEW EKG STRIP FROM MONITORED ROOM , NO NEW ORDERS RECEIVED
[2020-01-19 20:00] VITALS: BP 127/68
[2020-01-19] MEDS: ZOLPIDEM TARTRATE 5 MG TAB PO PRN (20:41)
[2020-01-20] VITALS: BP 135/77
[2020-01-20 03:40] LABS: BASOPHILS % (AUTO) 0.7 % (0.0-5.0); EOSINOPHILS % (AUTO) 1.8 % (0.0-8.0); HEMATOCRIT 42.9 % (42-54); LYMPHOCYTES % (AUTO) 25.9 % (21.0-51.0); MEAN CORPUSCULAR HEMOGLOBIN 32.3 pg (27.0-33.0); MEAN CORPUSCULAR HGB CONC 34.5 g/dL (32.0-36.0); MEAN CORPUSCULAR VOLUME 93.7 fL (79-99); NEUTROPHILS % (AUTO) 62.3 % (40.0-77.0); PLATELET COUNT (AUTO) 220 K/uL (130-400); RED BLOOD CELL COUNT(AUTO) 4.58 MIL/uL (4.50-6.20); RED CELL DISTRIBUTION WIDTH 12.6 % (11.0-15.5); WHITE BLOOD COUNT (AUTO) 7.3 K/uL (4.8-10.8)
[2020-01-20 04:00] VITALS: BP 158/71
[2020-01-20 04:08] LABS: CREATININE 1.4 mg/dL (0.5-1.5); MAGNESIUM 1.6 mg/dL (1.80-2.40); POTASSIUM 3.7 mmol/L (3.5-5.1); THYROID STIMULATING HORMONE 1.64 uIU/mL (0.36-3.74)
[2020-01-20] MEDS: INSULIN R PO SSI SQ SCH ×4 (06:30→21:19)
[2020-01-20] MEDS: MEROPENEM 1 GM VIAL IVP SCH ×2 (08:59→21:09)
[2020-01-20] MEDS: ISOSORBIDE MONO 60 MG TAB.SR PO SCH (09:00)
[2020-01-20] MEDS: ENTRESTO PO SCH ×2 (09:00→21:10)
[2020-01-20] MEDS: EMPAGLIFLOZIN 25 MG PO SCH (09:00)
[2020-01-20] MEDS: ASPIRIN 81 MG EC TAB PO SCH (09:00)
[2020-01-20] MEDS: ENOXAPARIN SODIUM 40 MG/0.4 ML SYRINGE SQ SCH (09:00)
[2020-01-20 11:00] VITALS: BP 117/68
[2020-01-20 11:42] LABS: INR 0.99 (0.85-1.15); PARTIAL THROMBOPLASTIN TIME 29.4 SEC (26.3-35.5); PROTHROMBIN TIME 10.7 SEC (9.6-11.6)
--- NOTE | 2020-01-20 15:00 | NUR ---
NOTE PATIENT HAS BEEN STABLE. NO DISTRESS OR SOB. BBS CLEAR. NO COUGH. DC'D OXYGEN HE WAS ONSAT HAS BEEN OKAY. ACCORDING TO DR DELEON PATIENT WILL NEED 10 DAYS OF INVANZ IV. WILL NEED PICC LINE DEPENDING WHERE HE IS GOING TO GO. I SPOKE TO HIS DAUGHTER AND SHE INFORMED ME THAT HE IS NOT GOING TO SNF THEY WOULD RATHER TAKE HIM HOME AND THEY SAY THEY ARE ABLE TO DRIVE HIM DAILY WHEREVER HE NEEDS TO GO. INFORMED RADIOLOGY TRANSCRIPTIONIST ABOUT IT AND SHE WILL SET UP [facility]. I WILL OBTAIN CONSENT FOR PICC LINE.
[2020-01-20 16:00] VITALS: BP 99/52
[2020-01-20 20:00] VITALS: BP 133/64
[2020-01-21] VITALS (7 sets, daily range): BP systolic 114–160; BP diastolic 71–84
[2020-01-21] MEDS: INSULIN R PO SSI SQ SCH ×4 (05:55→20:15)
[2020-01-21] MEDS: EMPAGLIFLOZIN 25 MG PO SCH (09:00)
[2020-01-21] MEDS: MEROPENEM 1 GM VIAL IVP SCH ×2 (10:28→20:17)
[2020-01-21] MEDS: ASPIRIN 81 MG EC TAB PO SCH (10:28)
[2020-01-21] MEDS: ENTRESTO PO SCH ×2 (10:32→20:18)
[2020-01-21] MEDS: ENOXAPARIN SODIUM 40 MG/0.4 ML SYRINGE SQ SCH (10:35)
[2020-01-21] MEDS: ISOSORBIDE MONO 60 MG TAB.SR PO SCH (10:36)
[2020-01-21 12:44] LABS: INR 1.01 (0.85-1.15); PROTHROMBIN TIME 10.9 SEC (9.6-11.6)
--- NOTE | 2020-01-21 14:34 | NUR ---
1415 patient received BPCI Letter.
--- NOTE | 2020-01-21 16:22 | NUR ---
5 FR 2 LUMEN PICC INSERTED TO RIGHT BRACHIAL VEIN, USING ASEPTIC TECHNIQUE. CATHETER CUT AT 45 CM (45 CM INTERNAL, 0 CM EXTERNAL) STERILE BIOPATCH AND TEGADERM DRESSING APPLIED. BOTH LUMENS HAVE GOOD BLOOD RETURN, FLUSHED EASILY AND CLAMPED. ARM CIRCUMFERENCE 31CM. (+) VPS BULLSEYE INDICATES PICC TIP IN LOWER 1/3 OF SVC OR AT CAVOATRIAL JUNCTION. PICC OK TO USE PER PROTOCOL.
--- NOTE | 2020-01-21 20:00 | NUR ---
ASSESSMENT NOTE PATIENT AWAKE,ALERT, OX 2,NO SOB, NO C/O PAIN AT THIS TIME, AD PICC LINE INTACT AND PATENT, TEACH PATIENT PLAN OF CARE AND EXPECTED OUTCOME, PATIENT VERBALIZES UNDERSTANDING VIA TEACH BACK, 1;1 AT BEDSIDE
[2020-01-22 04:00] VITALS: BP 130/84
[2020-01-22 04:04] LABS: BASOPHILS % (AUTO) 0.9 % (0.0-5.0); EOSINOPHILS % (AUTO) 2.5 % (0.0-8.0); HEMATOCRIT 45.6 % (42-54); LYMPHOCYTES % (AUTO) 33.9 % (21.0-51.0); MEAN CORPUSCULAR HEMOGLOBIN 31.7 pg (27.0-33.0); MEAN CORPUSCULAR HGB CONC 33.8 g/dL (32.0-36.0); MEAN CORPUSCULAR VOLUME 93.8 fL (79-99); MONOCYTES % (AUTO) 9.9 % (3.0-13.0); NEUTROPHILS % (AUTO) 52.4 % (40.0-77.0); PLATELET COUNT (AUTO) 232 K/uL (130-400); RED BLOOD CELL COUNT(AUTO) 4.86 MIL/uL (4.50-6.20); RED CELL DISTRIBUTION WIDTH 12.5 % (11.0-15.5); WHITE BLOOD COUNT (AUTO) 5.6 K/uL (4.8-10.8)
[2020-01-22 04:22] LABS: CREATININE 1.1 mg/dL (0.5-1.5); POTASSIUM 3.7 mmol/L (3.5-5.1)
[2020-01-22] MEDS: INSULIN R PO SSI SQ SCH ×4 (06:03→21:32)
[2020-01-22 08:19] VITALS: BP 128/78
[2020-01-22] MEDS: EMPAGLIFLOZIN 25 MG PO SCH (09:00)
[2020-01-22] MEDS ORDERED: METOPROLOL SUCCINATE 50 MG TAB.SR.24H PO SCH (09:15)
[2020-01-22] MEDS: MEROPENEM 1 GM VIAL IVP SCH ×2 (10:11→21:21)
[2020-01-22] MEDS: ASPIRIN 81 MG EC TAB PO SCH (10:12)
[2020-01-22] MEDS: ENOXAPARIN SODIUM 40 MG/0.4 ML SYRINGE SQ SCH (10:12)
[2020-01-22] MEDS: ENTRESTO PO SCH ×2 (10:13→21:34)
[2020-01-22 11:00] VITALS: BP 131/73
--- NOTE | 2020-01-22 14:00 | NUR ---
CM Note: [facility] pending approval CM spoke to pt's granddaughter Smita made aware of MD recommendations for [facility], made aware pt and spouse declined placement, as per spouse fabi is designated decision maker at this time as spouse is out of state taking care of family members. Davin agreeable, telephone consent obtained for [facility], witnessed by Kelley TELLES. Faxed order, clinicals, picc info and order to use, confirmation received. Pending approval, acceptance, and chair time. Primary nurse aware. CM to cont to follow up.
[2020-01-22 16:00] VITALS: BP 138/78
[2020-01-22 19:00] VITALS: BP 132/61
[2020-01-23] VITALS (7 sets, daily range): BP systolic 132–174; BP diastolic 64–86
[2020-01-23 04:09] LABS: BASOPHILS % (AUTO) 0.9 % (0.0-5.0); HEMATOCRIT 45.5 % (42-54); MEAN CORPUSCULAR HEMOGLOBIN 31.8 pg (27.0-33.0); MEAN CORPUSCULAR HGB CONC 33.8 g/dL (32.0-36.0); MEAN CORPUSCULAR VOLUME 93.8 fL (79-99); MONOCYTES % (AUTO) 10.1 % (3.0-13.0); NEUTROPHILS % (AUTO) 57.6 % (40.0-77.0); PLATELET COUNT (AUTO) 157 K/uL (130-400); RED BLOOD CELL COUNT(AUTO) 4.85 MIL/uL (4.50-6.20); RED CELL DISTRIBUTION WIDTH 12.4 % (11.0-15.5); WHITE BLOOD COUNT (AUTO) 5.4 K/uL (4.8-10.8)
[2020-01-23 04:45] LABS: CREATININE 1.2 mg/dL (0.5-1.5); POTASSIUM 4.2 mmol/L (3.5-5.1)
[2020-01-23] MEDS: INSULIN R PO SSI SQ SCH ×4 (07:27→21:00)
[2020-01-23] MEDS: EMPAGLIFLOZIN 25 MG PO SCH (09:00)
[2020-01-23] MEDS: ENTRESTO PO SCH ×2 (09:00→21:00)
[2020-01-23] MEDS: MEROPENEM 1 GM VIAL IVP SCH ×2 (10:11→21:12)
[2020-01-23] MEDS: ISOSORBIDE MONO 60 MG TAB.SR PO SCH (10:19)
[2020-01-23] MEDS: ASPIRIN 81 MG EC TAB PO SCH (10:20)
[2020-01-23] MEDS: METOPROLOL SUCCINATE 50 MG TAB.SR.24H PO SCH (10:20)
[2020-01-23] MEDS: ENOXAPARIN SODIUM 40 MG/0.4 ML SYRINGE SQ SCH (10:22)
--- NOTE | 2020-01-23 18:00 | NUR ---
[facility] [place] [facility] [place] RECD FOR SUNDAY AT 2PM RN AND GRANDDAUGHTER JORGE AWARE STILL PENIDNG PICC LINE INFO TO BE FAXED, TRIED MULTIPL TIMES TO FAX TO [phone], FAXED TO [phone] FOR FORWARDING. KOKI MELCHOR AND GRANDDAUGHTER JORGE AWARE OFAPPOINTMENT SUNDAY AT 2P.
[2020-01-23] MEDS: ZOLPIDEM TARTRATE 5 MG TAB PO PRN (22:52)
[2020-01-24] MEDS ORDERED: LORAZEPAM 2 MG/ML 1 ML VIAL ONE (00:58)
[2020-01-24] MEDS ORDERED: LORAZEPAM 2 MG/ML 1 ML VIAL IVP ONE (01:00)
--- NOTE | 2020-01-24 01:07 | NUR ---
PATIENT REMOVING GOWN, ATTEMPTING TO GET OUT OF BED, REMOVED RN ANTE PARTUM AND NOT ALLOWING MONITOR TO BE PLACED BACK. PT REACHING TOWARDS PICC LINE WELL. I CALLED TRAN [facility], UPDATED ON STATUS. NEW ORDER FOR ATIVAN 0.5 MG IV X 1 DOSE NOW AND OKAY TO DISCONTINUE TELEMETRY MONITORING. PATIENT CONTINUES WITH 1:1 SITTER. WILL CONT TO MONITOR CLOSELY.
[2020-01-24 01:20] VITALS: BP 165/86
[2020-01-24 03:08] VITALS: BP 96/59
[2020-01-24 04:15] LABS: BASOPHILS % (AUTO) 0.8 % (0.0-5.0); EOSINOPHILS % (AUTO) 1.9 % (0.0-8.0); HEMATOCRIT 43.4 % (42-54); LYMPHOCYTES % (AUTO) 25.2 % (21.0-51.0); MEAN CORPUSCULAR HGB CONC 34.1 g/dL (32.0-36.0); MEAN CORPUSCULAR VOLUME 93.9 fL (79-99); MONOCYTES % (AUTO) 10.2 % (3.0-13.0); NEUTROPHILS % (AUTO) 61.7 % (40.0-77.0); PLATELET COUNT (AUTO) 195 K/uL (130-400); RED BLOOD CELL COUNT(AUTO) 4.62 MIL/uL (4.50-6.20); RED CELL DISTRIBUTION WIDTH 12.2 % (11.0-15.5); WHITE BLOOD COUNT (AUTO) 6.4 K/uL (4.8-10.8)
[2020-01-24 04:41] LABS: CREATININE 1.1 mg/dL (0.5-1.5); POTASSIUM 4.1 mmol/L (3.5-5.1)
[2020-01-24] MEDS: INSULIN R PO SSI SQ SCH ×4 (06:23→20:59)
[2020-01-24] MEDS: MEROPENEM 1 GM VIAL IVP SCH ×2 (08:42→20:51)
[2020-01-24] MEDS: SODIUM CHLORIDE 0.9% 10 ML VIAL IVP SCH (08:42)
[2020-01-24 09:00] VITALS: BP 111/65
[2020-01-24] MEDS: EMPAGLIFLOZIN 25 MG PO SCH (09:00)
[2020-01-24] MEDS: ENTRESTO PO SCH ×2 (09:00→20:51)
[2020-01-24] MEDS: ASPIRIN 81 MG EC TAB PO SCH (09:23)
[2020-01-24] MEDS: METOPROLOL SUCCINATE 50 MG TAB.SR.24H PO SCH (09:23)
[2020-01-24] MEDS: ISOSORBIDE MONO 60 MG TAB.SR PO SCH (09:24)
[2020-01-24] MEDS: ENOXAPARIN SODIUM 40 MG/0.4 ML SYRINGE SQ SCH (09:25)
--- NOTE | 2020-01-24 11:31 | NUR ---
[facility] [place] [facility]: Jatin Bocanegra @ [facility]. States they have received PICC line info. Confirmed they have all needed information.
[2020-01-24 12:00] VITALS: BP 93/57
[2020-01-24 19:38] VITALS: BP 119/67
[2020-01-24 23:27] VITALS: BP 126/72
[2020-01-25] MEDS: INSULIN R PO SSI SQ SCH ×5 (06:12→21:00)
[2020-01-25 08:00] VITALS: BP 135/84
--- NOTE | 2020-01-25 08:27 | NUR ---
DR. CARLISLE MD ROUNDING ON THE FLOOR AT THIS TIME. INFORMED MD OF ABNORMAL RHYTHMS REPORTED BY EXCELSIOR PICKER Levi STEELE RN. DR. CARLISLE REVIEWED THE TELE STRIPS THAT OCCURRED AT 0702, 07, AND 07. PATIENT CURRENTLY ASLEEP AND VS WNL. DR. CARLISLE REPLIED THAT BECAUSE PATIENT IS ASYMPTOMATIC NO FURTHER CARDIAC INTERVENTION IS NEEDED.
[2020-01-25] MEDS: ENTRESTO PO SCH ×2 (09:00→21:00)
[2020-01-25] MEDS: EMPAGLIFLOZIN 25 MG PO SCH (09:00)
--- NOTE | 2020-01-25 10:00 | NUR ---
DME/[facility]: Spoke w pt's dtr and obtained consent for [facility] for standard walker. Script/PN sent to [facility]. Spoke w Parker from [employer]. States is unable to verify benefits until Sunday. Discussed w charge nurse Estefanía and PT Kosta. Per CN and PT they can lend pt walker for dc home and he can return once his gets delivered.
[2020-01-25] MEDS: SODIUM CHLORIDE 0.9% 10 ML VIAL IVP SCH (10:08)
[2020-01-25] MEDS: MEROPENEM 1 GM VIAL IVP SCH ×2 (10:08→20:45)
[2020-01-25] MEDS: ASPIRIN 81 MG EC TAB PO SCH (10:08)
[2020-01-25] MEDS: METOPROLOL SUCCINATE 50 MG TAB.SR.24H PO SCH (10:09)
[2020-01-25] MEDS: ISOSORBIDE MONO 60 MG TAB.SR PO SCH (10:09)
[2020-01-25] MEDS: ENOXAPARIN SODIUM 40 MG/0.4 ML SYRINGE SQ SCH (10:11)
[2020-01-25 12:00] VITALS: BP 137/78
[2020-01-25 16:00] VITALS: BP 133/75
[2020-01-25 19:18] VITALS: BP 142/73
[2020-01-25 22:53] VITALS: BP 126/65
[2020-01-26 03:59] VITALS: BP 132/70
[2020-01-26] MEDS: INSULIN R PO SSI SQ SCH ×3 (06:44→16:30)
[2020-01-26 08:00] VITALS: BP 136/95
[2020-01-26] MEDS: EMPAGLIFLOZIN 25 MG PO SCH (09:00)
[2020-01-26] MEDS: ENTRESTO PO SCH (09:00)
[2020-01-26] MEDS: ISOSORBIDE MONO 60 MG TAB.SR PO SCH (09:22)
[2020-01-26] MEDS: METOPROLOL SUCCINATE 50 MG TAB.SR.24H PO SCH (09:22)
[2020-01-26] MEDS: MEROPENEM 1 GM VIAL IVP SCH (09:22)
[2020-01-26] MEDS: ASPIRIN 81 MG EC TAB PO SCH (09:22)
[2020-01-26] MEDS: ENOXAPARIN SODIUM 40 MG/0.4 ML SYRINGE SQ SCH (09:23)
[2020-01-26 12:00] VITALS: BP 120/72
--- NOTE | 2020-01-26 13:14 | NUR ---
CM note: [facility] appointment CM spoke to Leti Cherry, rescheduled appointment for Friday 01/26 @ 2pm. Primary nurse aware, to instruct pt and family appointment time. CM to cont to follow up. CM spoke to Ed[facility]'s DME, pending approval and delivery for tomorrow. Aware pt will dc today and hospital will lend temporary walker. Primary nurse aware, to instruct pt to return walker once own DME delivered at home. CM to cont to follow up.
== END 2020-01-26 17:30 | disposition home or self-care (01) | DRG 690 ==
LOC: EDH 13:42 → EDHIP 13:43 → 3BH 01-16 16:58
PROVIDERS: ADMIT Internal Medicine; ATTEND Internal Medicine
PROC: 05HY33Z Insertion of Infusion Device into Upper Vein, Percutaneous Approach (ICD-10-PCS; principal; 2020-01-21)
DX: N39.0 Urinary tract infection, site not specified (principal); N17.9 Acute kidney failure, unspecified; G93.40 Encephalopathy, unspecified; Z16.24 Resistance to multiple antibiotics; I24.8 Other forms of acute ischemic heart disease; I16.0 Hypertensive urgency; I25.10 Atherosclerotic heart disease of native coronary artery without angina pectoris; J44.9 Chronic obstructive pulmonary disease, unspecified; E11.40 Type 2 diabetes mellitus with diabetic neuropathy, unspecified; I48.91 Unspecified atrial fibrillation; E55.9 Vitamin D deficiency, unspecified; G47.33 Obstructive sleep apnea (adult) (pediatric); E78.00 Pure hypercholesterolemia, unspecified; N18.9 Chronic kidney disease, unspecified; E11.22 Type 2 diabetes mellitus with diabetic chronic kidney disease; I12.9 Hypertensive chronic kidney disease with stage 1 through stage 4 chronic kidney disease, or unspecified chronic kidney disease; I44.1 Atrioventricular block, second degree; N28.1 Cyst of kidney, acquired; N40.0 Benign prostatic hyperplasia without lower urinary tract symptoms; B96.20 Unspecified Escherichia coli [E. coli] as the cause of diseases classified elsewhere; E78.5 Hyperlipidemia, unspecified; R53.81 Other malaise; Z20.828 Contact with and (suspected) exposure to other viral communicable diseases; M19.90 Unspecified osteoarthritis, unspecified site; E66.01 Morbid (severe) obesity due to excess calories; Z68.39 Body mass index [BMI] 39.0-39.9, adult; I25.2 Old myocardial infarction; Z90.49 Acquired absence of other specified parts of digestive tract; Z88.8 Allergy status to other drugs, medicaments and biological substances; Z74.01 Bed confinement status; Z95.1 Presence of aortocoronary bypass graft; Z87.440 Personal history of urinary (tract) infections; Z91.19 Patient's noncompliance with other medical treatment and regimen; Z86.73 Personal history of transient ischemic attack (TIA), and cerebral infarction without residual deficits
CPT/HCPCS: 36415; 71045; 76770; 80048; 80053; 81001; 82550; 82948; 83036; 83605; 83735; 83874; 83880; 84132; 84443; 84484; 85025; 85610; 85730; 87077; 87088; 87186; 87426; 93005; 93306; 93356; 97039; C1894; G0378; J0360; J0696; J1200; J1644; J1650; J1815; J2060; J2185; J3480; J3490; J7030; U0003

== ENCOUNTER 2020-06-27 07:33 | Inpatient (IN) | payer MEDICARE ==
[~2020-06-27 07:33] MED LIST changes: +SACU1TAB7 PO
[2020-06-27] MEDS ORDERED: ADENOSINE 6MG VIAL IV ONE ×2 (07:45→07:49)
[2020-06-27 08:23] LABS: BASOPHILS % (AUTO) 1.6 % (0.0-5.0); EOSINOPHILS % (AUTO) 10.5 % (0.0-8.0); HEMATOCRIT 45.4 % (42-54); LYMPHOCYTES % (AUTO) 17.8 % (21.0-51.0); MEAN CORPUSCULAR HEMOGLOBIN 31.7 pg (27.0-33.0); MEAN CORPUSCULAR HGB CONC 33.7 g/dL (32.0-36.0); NEUTROPHILS % (AUTO) 62.8 % (40.0-77.0); PLATELET COUNT (AUTO) 206 K/uL (130-400); RED BLOOD CELL COUNT(AUTO) 4.83 MIL/uL (4.50-6.20); RED CELL DISTRIBUTION WIDTH 12.6 % (11.0-15.5)
[2020-06-27 08:26] LABS: ABG BASE EXCESS -2.7 mmol/L (-2.0-3.0); ABG HCO3 20.6 mmol/L (21.0-28.0); ABG OXYGEN SATURATION 94.3 % (95.0-99.0); ABG PCO2 32 mmHg (35-48)
[2020-06-27 08:30] LABS: CREATININE 1.6 mg/dL (0.5-1.5); POTASSIUM 3.9 mmol/L (3.5-5.1)
[2020-06-27 08:34] LABS: BILIRUBIN,TOTAL 0.6 mg/dL (0.2-1.0); TOTAL PROTEIN, SERUM 7.6 g/dL (6.0-8.3)
[2020-06-27] MEDS ORDERED: ASPIRIN 81MG CHEW TAB ONE (08:37)
[2020-06-27] MEDS ORDERED: FUROSEMIDE 20MG VIAL ONE (08:37)
[2020-06-27] MEDS ORDERED: CYANOCOBALAMIN (VITAMIN B-12) 1,000 MCG TABLET ONE (08:38)
[2020-06-27] MEDS ORDERED: PANTOPRAZOLE 40 MG TAB DR ONE (08:38)
[2020-06-27] MEDS ORDERED: THIAMINE HCL 100 MG/ML 2ML VIAL ONE (08:38)
[2020-06-27] MEDS ORDERED: FOLIC ACID 1 MG TABLET ONE (08:39)
[2020-06-27] MEDS ORDERED: ALBUTEROL INHALER 90MCG/INH IH ONE (08:45)
[2020-06-27] MEDS ORDERED: SOLU-MEDROL 125MG VIAL ONE (08:59)
[2020-06-27 09:02] LABS: B-TYPE NATRIURETIC PEPTIDE 311 pg/mL (0-100)
[2020-06-27] MEDS ORDERED: NITROGLYCERIN 1GM OINT 1 INCH/1GM TD ONE (09:16)
[2020-06-27] MEDS ORDERED: ASPIRIN 325MG EC TAB PO ONE (09:18)
[2020-06-27] MEDS ORDERED: CEFTRIAXONE 1G VIAL IVP SCH (10:15)
[2020-06-27] MEDS ORDERED: HYDRALAZINE 20MG/ML VIAL IV PRN (10:30)
[2020-06-27 10:32] LABS: HEMOGLOBIN A1C 8.4 % (4.0-6.0)
[2020-06-27 10:45] LABS: MAGNESIUM 1.5 mg/dL (1.80-2.40); THYROID STIMULATING HORMONE 2.16 uIU/mL (0.36-3.74)
[2020-06-27 10:52] LABS: CRP QUANTITATIVE < 2.00 mg/L (0.00-9.0); LACTATE DEHYDROGENASE 171 U/L (81-234)
[2020-06-27] MEDS ORDERED: INSULIN HUMULIN R 100 UNIT/ML 3ML SQ SCH (11:30)
[2020-06-27] MEDS ORDERED: DOXYCYCLINE HYCLATE 100 MG TABLET PO SCH (13:00)
[2020-06-27] MEDS ORDERED: BENZONATATE 100 MG CAPSULE PO SCH (14:00)
[2020-06-27] MEDS ORDERED: ALBUTEROL INHALER 90MCG/INH IH SCH (14:00)
[2020-06-27] MEDS ORDERED: SOLU-MEDROL 125MG VIAL IVP SCH (19:00)
[2020-06-28] MEDS ORDERED: ENOXAPARIN SODIUM 40 MG/0.4 ML SYRINGE SQ SCH (09:00)
== END 2020-06-27 12:26 | disposition left against medical advice (07) | DRG 281 ==
LOC: EDH 07:33 → EDHIP 10:10
PROVIDERS: ADMIT Internal Medicine; ATTEND Internal Medicine
DX: I21.4 Non-ST elevation (NSTEMI) myocardial infarction (principal); J44.1 Chronic obstructive pulmonary disease with (acute) exacerbation; R09.02 Hypoxemia; R73.9 Hyperglycemia, unspecified; I48.91 Unspecified atrial fibrillation; I25.10 Atherosclerotic heart disease of native coronary artery without angina pectoris; E78.5 Hyperlipidemia, unspecified; I10 Essential (primary) hypertension; Z88.8 Allergy status to other drugs, medicaments and biological substances; Z88.1 Allergy status to other antibiotic agents; Z91.041 Radiographic dye allergy status; Z95.1 Presence of aortocoronary bypass graft; Z90.49 Acquired absence of other specified parts of digestive tract; Z87.891 Personal history of nicotine dependence; Z20.822 Contact with and (suspected) exposure to COVID-19
CPT/HCPCS: 36415; 36600; 71045; 80053; 82728; 82803; 83036; 83615; 83735; 83880; 84145; 84443; 84484; 85025; 85378; 86140; 87040; 87426; 93005; G0378; J0153; J1940; J2930; J3411; U0003

== ENCOUNTER → 2021-03-07 | Outpatient (CLI) | payer MEDICARE | END | disposition home or self-care (01) | LOC: OIH 10:55 | PROVIDERS: ATTEND Internal Medicine Cardiovascular Disease | DX: J98.11 Atelectasis (principal); I51.7 Cardiomegaly; J44.9 Chronic obstructive pulmonary disease, unspecified; Z95.1 Presence of aortocoronary bypass graft; I50.42 Chronic combined systolic (congestive) and diastolic (congestive) heart failure | CPT/HCPCS: 71046 ==

== ENCOUNTER → 2023-06-15 | Outpatient (CLI) | payer OTHER ==
[~2023-06-15] MED LIST changes: +CARV6.25 PO; +CHOL500050 PO; +CLOP-31 PO; -CLOP75TA14 PO; +CLOP75TA32 PO; +DIPH-1242 PO; +FLUT1AER IH; +INSU200I SQ; +LEVO-70 PO; +UMEC62.5 IH
[2023-06-15 13:09] LABS: CREATININE 1.8 mg/dL (0.5-1.5); MAGNESIUM 2.3 mg/dL (1.80-2.40); POTASSIUM 3.8 mmol/L (3.5-5.1)
== END | disposition home or self-care (01) ==
LOC: LAB 11:48
PROVIDERS: ATTEND Internal Medicine Cardiovascular Disease
DX: I50.42 Chronic combined systolic (congestive) and diastolic (congestive) heart failure (principal); I25.810 Atherosclerosis of coronary artery bypass graft(s) without angina pectoris
CPT/HCPCS: 36415; 80048; 83735; 83880

== ENCOUNTER → 2023-07-20 | Emergency (ER) | payer OTHER ==
[~2023-07-20] VITALS: Ht 180.3 cm; Wt 85.7 kg
[2023-07-20 10:58] VITALS: BP 118/66; PULSE 58; RESP 17; O2SAT 99
== END ==
LOC: EDH 10:50
DX: I95.9 Hypotension, unspecified (principal); Z53.21 Procedure and treatment not carried out due to patient leaving prior to being seen by health care provider
CPT/HCPCS: 99281

== ENCOUNTER → 2023-08-13 | Outpatient (CLI) | payer OTHER ==
[2023-08-13 16:41] LABS: CREATININE 1.8 mg/dL (0.5-1.3); POTASSIUM 4.7 mmol/L (3.5-5.1)
== END | disposition home or self-care (01) ==
LOC: LAB 11:50
PROVIDERS: ATTEND Internal Medicine Cardiovascular Disease
DX: I10 Essential (primary) hypertension (principal); E78.5 Hyperlipidemia, unspecified
CPT/HCPCS: 36415; 80048; 83880

== ENCOUNTER → 2023-10-12 | Outpatient (CLI) | payer OTHER ==
[2023-10-12 14:58] LABS: CREATININE 1.9 mg/dL (0.5-1.3); POTASSIUM 3.6 mmol/L (3.5-5.1)
== END | disposition home or self-care (01) ==
LOC: LAB 11:27
PROVIDERS: ATTEND Internal Medicine Cardiovascular Disease
DX: I50.22 Chronic systolic (congestive) heart failure (principal)
CPT/HCPCS: 36415; 80048; 83880

== ENCOUNTER → 2023-12-25 | Outpatient (CLI) | payer OTHER ==
[2023-12-25 12:09] LABS: BASOPHILS # (AUTO) 0.05 K/uL (0.00-0.20); BASOPHILS % (AUTO) 0.7 % (0.0-5.0); EOSINOPHILS # (AUTO) 0.15 K/uL (0.00-0.70); EOSINOPHILS % (AUTO) 2.2 % (0.0-8.0); HEMATOCRIT 37.1 % (42-54); IMMATURE GRANULOCYTE ABSOLUTE 0.02 K/uL (0-1); LYMPHOCYTES # (AUTO) 1.7 K/uL (1.0-4.8); LYMPHOCYTES % (AUTO) 24.6 % (21.0-51.0); MEAN CORPUSCULAR HEMOGLOBIN 33.2 pg (27.0-33.0); MEAN CORPUSCULAR HGB CONC 33.4 g/dL (32.0-36.0); MEAN CORPUSCULAR VOLUME 99.5 fL (79-99); MONOCYTES # (AUTO) 0.7 K/uL (0.1-1.0); MONOCYTES % (AUTO) 10.7 % (3.0-13.0); NEUTROPHILS # (AUTO) 4.2 K/uL (1.8-7.7); NEUTROPHILS % (AUTO) 61.5 % (40.0-77.0); PLATELET COUNT (AUTO) 168 K/uL (130-400); RED BLOOD CELL COUNT(AUTO) 3.73 MIL/uL (4.50-6.20); RED CELL DISTRIBUTION WIDTH 14.4 % (11.0-15.5); WHITE BLOOD COUNT (AUTO) 6.8 K/uL (4.8-10.8)
[2023-12-25 12:30] LABS: B-TYPE NATRIURETIC PEPTIDE 945 pg/mL (0-100)
[2023-12-25 12:31] LABS: ALBUMIN 3.7 g/dL (3.5-5.0); BILIRUBIN,TOTAL 1.3 mg/dL (0.2-1.0); CREATININE 2.1 mg/dL (0.5-1.3); MAGNESIUM 1.6 mg/dL (1.80-2.40); POTASSIUM 3.4 mmol/L (3.5-5.1); TOTAL PROTEIN, SERUM 7.4 g/dL (6.0-8.3)
== END | disposition home or self-care (01) ==
LOC: LAB 10:47
PROVIDERS: ATTEND Internal Medicine Cardiovascular Disease
DX: I48.0 Paroxysmal atrial fibrillation (principal); N18.30 Chronic kidney disease, stage 3 unspecified; D68.59 Other primary thrombophilia
CPT/HCPCS: 36415; 80053; 80061; 83735; 83880; 85025